=== PATIENT | male | born 1990 | race Caucasian/White ===

== ENCOUNTER 2022-11-11 14:19 | Emergency (ER) | payer MEDICAID, SELFPAY ==
--- NOTE | 2022-11-11 14:22 | ED_ITS ---
HPI - Alcohol General Chief Complaint: Alcohol Stated Complaint: alcohol intoxication Time Seen by Provider: 11/11/22 14:20 History of Present Illness HPI narrative: patient is a 32-year-old male who presents the emergency department by ambulance because he is too intoxicated for his alcohol rehab facility to care for him. Patient was checking in at a local [facility] alcohol rehab facility and was found to have a breathalyzer greater than 0.2, which apparently means that the facility is not able to care for him. Patient has no focal medical complaints on arrival to the Emergency Room. He states that he did try to check himself into the facility because he is seeking help for his alcohol dependence. He denies any other drug ingestion. Police were called at the patient's arrival to the Emergency Room because EMS reported that he was combative. At time of initial interview, patient is tearful, frustrated with police presence. patient denies any suicidal or homicidal ideation. He is alert and oriented to person, place, time. Related Data Allergies Allergy/AdvReac Type Severity Reaction Status Date / Time No Known Drug Allergies Allergy Verified 11/11/22 14:24 Review of Systems ROS Constitutional Denies: fever or chills Ears, nose, mouth, and throat Denies: throat pain or nasal congestion Cardiovascular Denies: chest pain Respiratory Denies: shortness of breath or cough Gastrointestinal Denies: nausea or vomiting Musculoskeletal Denies: back pain Integumentary/Breast Denies: rash Neurological Denies: headache Allergic/Immunologic Denies: hives Exam Narrative Exam Narrative: Gen.: Awake, alert, in no distress Head: Normocephalic, atraumatic ENT: Moist mucous membranes Respiratory: No respiratory distress, lungs clear bilaterally Cardio: Regular rate and rhythm Extremities: Moves extremities equally, no injuries noted Psych: tearful, mildly agitated Neuro: smells of alcohol, mildly slurred speech. Alert and oriented to person, place, time Skin: Warm, dry, intact Constitutional Vital Signs, click to edit/add: Last Vital Signs Temp 97.7 F 11/11/22 14:24 Pulse 100 H 11/11/22 14:24 Resp 20 11/11/22 14:24 BP 147/86 H 11/11/22 14:24 Pulse Ox 98 11/11/22 14:24 O2 Del Method Room Air 11/11/22 14:24 Course Vital Signs Vital signs: Vital Signs Temperature 97.7 F 11/11/22 14:24 Pulse Rate 100 H 11/11/22 14:24 Respiratory Rate 20 11/11/22 14:24 Blood Pressure 147/86 H 11/11/22 14:24 Pulse Oximetry 98 11/11/22 14:24 Oxygen Delivery Method Room Air 11/11/22 14:24 Temperature 97.7 F 11/11/22 14:24 Pulse Rate 100 H 11/11/22 14:24 Respiratory Rate 20 11/11/22 14:24 Blood Pressure 147/86 H 11/11/22 14:24 Pulse Oximetry 98 11/11/22 14:24 Oxygen Delivery Method Room Air 11/11/22 14:24 MDM - Alcohol MDM Narrative Medical decision making narrative: after arrival to the emergency department, patient was initially agreeable to EKG, IV fluids, lab studies. After an IV was established, she refused IV fluids, he refused EKG and demanded that his IV be removed. He was given a nicotine patch. Patient stated that he no longer wanted to stay for treatment, he attempted to contact his father and another sober libertarian to come pick him up from the Emergency Room. He was made aware that his 1st possible, sober libertarian will present to the Emergency Room to pick him up he is free to leave at any time he can be discharged to their care. After this discussion with his father, the patient called [facility] requesting that they pick him up, I spoke with a staff member over the phone, Gayla, who stated that the patient consented at their facility for transfer to the Emergency Room and treatment in the emergency department, but is apparently too intoxicated to consent for treatment at their facility which is why they wanted him to come to the Emergency Room for evaluation. I made her aware that the patient is refusing IV fluids, EKG but was agreeable to a lab draw. She is in agreement that the patient is free to leave at any time, he is not currently pink slipped and we cannot force the patient to undergo any additional treatment if he is not agreeable. 1900: as the patient was not able to find a ride to come pick him up from the Emergency Room, he was agreeable to staying in the Emergency Room for medical clearance. He was observed for over 4-1/2 hours, his initial blood alcohol level was 312. He was given 2 L of IV fluids. His vital signs remain stable and he slept in the emergency department for several hours. He continues to be arousable with appropriate mentation and alert and oriented. I discussed the patient with BRI Flynn at [facility]. He stated that there is no specific number of blood alcohol level that the patient must be under but if he is stable he can be discharged to their facility. They will arrange transport. Patient with a repeat blood alcohol level prior to discharge, transport will take him to [facility]. Return to the Emergency Room if symptoms change or worsen. Medical Records Attestation: I reviewed the patient's medical records. Lab Data Attestation: I reviewed the patient's lab results. Labs: Lab Results 11/11/22 Range/Units 14:26 WBC 9.0 (4.0-11.0) 10^3/uL RBC 4.87 (4.70-6.10) 10^6/uL Hgb 15.2 (14.0-18.0) g/dL Hct 45.4 (42.0-54.0) % MCV 93.2 (80.0-94.0) fL MCH 31.2 (25.9-34.0) pg MCHC 33.5 (29.9-35.2) g/dL RDW 13.3 (11.0-15.0) % Plt Count 203 (150-450) 10^3/uL MPV 9.2 L (9.5-13.5) fL Neut % (Auto) 64.0 (43.0-75.0) % Lymph % (Auto) 30.1 (20.5-60.0) % [place] % (Auto) 3.7 (1.7-12.0) % Eos % (Auto) 0.8 L (0.9-7.0) % Baso % (Auto) 0.8 (0.2-2.0) % Neut # (Auto) 5.8 (1.4-6.5) 10^3/uL Lymph # (Auto) 2.7 (1.2-3.8) 10^3/uL [place] # (Auto) 0.3 (0.3-0.8) 10^3/uL Eos # (Auto) 0.1 (0.0-0.7) 10^3/uL Baso # (Auto) 0.1 (0.0-0.1) 10^3/uL Abs Immat Gran (auto) 0.05 H (0.00-0.03) 10^3/uL Imm/Tot Granulo (auto) 0.6 H (0.0-0.5) % Sodium 142 (136-145) mmol/L Potassium 4.0 (3.5-5.1) mmol/L Chloride 105 (98-107) mmol/L Carbon Dioxide 29.3 (21.0-32.0) mmol/L Anion Gap 11.7 BUN 11.0 (7.0-18.0) mg/dL Creatinine 0.81 (0.70-1.30) mg/dL Est GFR ( Amer) >60 (>=60) Est GFR (Non-Af Amer) >60 (>=60) BUN/Creatinine Ratio 13.6 Glucose 107 H (74-106) mg/dL Calcium 8.8 (8.5-10.1) mg/dL Magnesium 2.3 (1.8-2.4) mg/dL Total Bilirubin 0.3 (0.2-1.0) mg/dL AST 22 (15-37) U/L ALT 22 (16-63) U/L Alkaline Phosphatase 98 (46-116) U/L Total Protein 7.5 (6.4-8.2) g/dL Albumin 4.3 (3.4-5.0) g/dL Globulin 3.2 g/dL Albumin/Globulin Ratio 1.3 Salicylates <2.8 (<=19.9) mg/dL Acetaminophen <2.0 L (10.0-30.0) ug/mL Ethanol Quant 312 mg/dL Discharge Plan Discharge Chief Complaint: Alcohol Clinical Impression: Alcoholic intoxication Patient Disposition: Home, Self-Care Time of Disposition Decision: 18:46 Condition: Good Instructions: Alcohol Intoxication (DC) Stand Alone Forms: Portal Instructions Referrals: Physician,Non-Staff, MD [Primary Care Provider] - 1 week
[2022-11-11 14:24] VITALS: BP 147/86; PULSE 100; RESP 20; TEMP 36.5; O2SAT 98
[2022-11-11] MEDS: NICOTINE 21 MG PATCH TD (14:34)
[2022-11-11] MEDS: 0.9 % SODIUM CHLORIDE 1,000 ML 1000 ML IV ×2 (14:34→17:22)
[2022-11-11 14:36] LABS: Basophils Absolute Auto 0.1 10^3/uL (0.0-0.1); Basophils Percent Auto 0.8 % (0.2-2.0); Eosinophils Absolute Auto 0.1 10^3/uL (0.0-0.7); Eosinophils Percent Auto 0.8 % (0.9-7.0); Hematocrit 45.4 % (42.0-54.0); Hemoglobin 15.2 g/dL (14.0-18.0); Immature Granulocytes Abs Auto 0.05 10^3/uL (0.00-0.03); Immature Granulocytes Pct Auto 0.6 % (0.0-0.5); Lymphocytes Absolute Auto 2.7 10^3/uL (1.2-3.8); Lymphocytes Percent Auto 30.1 % (20.5-60.0); Mean Corpuscular HGB Conc 33.5 g/dL (29.9-35.2); Mean Corpuscular Hemoglobin 31.2 pg (25.9-34.0); Mean Corpuscular Volume 93.2 fL (80.0-94.0); Mean Platelet Volume 9.2 fL (9.5-13.5); Monocytes Absolute Auto 0.3 10^3/uL (0.3-0.8); Monocytes Percent Auto 3.7 % (1.7-12.0); Neutrophils Absolute Auto 5.8 10^3/uL (1.4-6.5); Platelet Count 203 10^3/uL (150-450); Red Blood Count 4.87 10^6/uL (4.70-6.10); Red Cell Distribution Width 13.3 % (11.0-15.0)
[2022-11-11 15:00] LABS: Alanine Aminotransferase 22 U/L (16-63); Albumin Globulin Ratio 1.3; Albumin Level 4.3 g/dL (3.4-5.0); Alkaline Phosphatase 98 U/L (46-116); Anion Gap 11.7; Aspartate Amino Transferase 22 U/L (15-37); BUN Creatinine Ratio 13.6; Bilirubin Total 0.3 mg/dL (0.2-1.0); Calcium 8.8 mg/dL (8.5-10.1); Carbon Dioxide 29.3 mmol/L (21.0-32.0); Chloride 105 mmol/L (98-107); Estimated GFR (African America >60 (>=60); Estimated GFR (Non-African Ame >60 (>=60); Globulin 3.2 g/dL; Glucose 107 mg/dL (74-106); Sodium 142 mmol/L (136-145); Total Protein 7.5 g/dL (6.4-8.2)
[2022-11-11 15:01] LABS: Ethanol 312 mg/dL; Magnesium 2.3 mg/dL (1.8-2.4)
[2022-11-11 15:29] LABS: Salicylate <2.8 mg/dL (<=19.9)
[2022-11-11 15:32] LABS: Acetaminophen <2.0 ug/mL (10.0-30.0)
[2022-11-11 18:55] VITALS: BP 116/71; PULSE 72; RESP 16; O2SAT 100
[2022-11-11 19:14] LABS: Ethanol 225 mg/dL
== END 2022-11-11 19:14 | disposition home or self-care (01) ==
PROVIDERS: Physician Assistant; Emergency Provider Emergency Medicine
DX: F10.129 Alcohol abuse with intoxication, unspecified (principal); Y90.8 Blood alcohol level of 240 mg/100 ml or more
CPT/HCPCS: 36415; 80053; 80179; 80307; 80320; 80329; 83735; 85025; 99285